=== PATIENT | male | born 1970 | race African-American/Black ===

== ENCOUNTER 2020-08-31 10:12 | Inpatient (IN) | payer OTHER ==
[2020-08-31 11:16] VITALS: BMI 35.3
[2020-08-31] MEDS ORDERED: MAG HYDROX/AL HYDROX/SIMETH 30 ML UNIT-DOSE CUP PO PRN (13:31)
[2020-08-31] MEDS ORDERED: METHOCARBAMOL 500 MG TABLET PO PRN (13:31)
[2020-08-31] MEDS ORDERED: MAGNESIUM HYDROX 2400MG/30ML ORAL SUSPENSION 30 ML CUP PO PRN (13:31)
[2020-08-31] MEDS ORDERED: NICOTINE POLACRILEX 2 MG GUM BUC PRN (13:31)
[2020-08-31] MEDS ORDERED: ACETAMINOPHEN 325 MG TABLET (FP) PO PRN ×2 (13:31)
[2020-08-31] MEDS ORDERED: BISMUTH SUBSALICYLATE 524 MG/30 ML UD PO PRN (13:31)
[2020-08-31] MEDS ORDERED: MAGNESIUM CITRATE 300 ML BOTTLE PO PRN (13:31)
[2020-08-31] MEDS ORDERED: MENTHOL/PHENOL 1 EACH UD MM PRN (13:31)
[2020-08-31] MEDS ORDERED: IBUPROFEN 400 MG TABLET (FP) PO PRN (13:31)
[2020-08-31] MEDS ORDERED: ONDANSETRON *ODT* 4 MG TABLET SL PRN (13:31)
[2020-08-31] MEDS ORDERED: cloNIDine HCL 0.1 MG TABLET PO PRN (13:31)
[2020-08-31] MEDS ORDERED: METHADONE HCL 10 MG TABLET (FOR DETOX USE ONLY) PO ONE (13:45)
[2020-08-31] MEDS: hydrOXYzine PAMOATE 25 MG CAPSULE (FP) PO SCH ×3 (15:05→23:42)
[2020-08-31] MEDS: NICOTINE 14 MG/24 HOURS TOPICAL PATCH TD SCH (15:05)
[2020-08-31 17:29] LABS: POTASSIUM 3.6 mmol/L (3.5-5.1)
[2020-08-31 17:31] LABS: CALCIUM 8.6 mg/dL (8.5-10.1); HEMATOCRIT 36.3 % (35.4-49); HEMOGLOBIN 12.3 GM/dL (11.7-16.9); MCH 30.4 pg (25.7-33.7); MCHC 33.9 g/dl (32.0-35.9); MEAN CELL VOLUME 89.6 fl (80-96); PLATELET COUNT 124 K/MM3 (134-434); RBC 4.05 M/mm3 (4.00-5.60); RDW 14.2 % (11.9-15.9); WHITE BLOOD COUNT 4.3 K/mm3 (4.0-10.0)
[2020-08-31 17:32] LABS: ALBUMIN 3.5 g/dl (3.4-5.0); BLOOD UREA NITROGEN 7.6 mg/dL (7-18)
[2020-08-31 17:35] LABS: CREATININE 1.1 mg/dL (0.55-1.3)
[2020-08-31 17:37] LABS: BILIRUBIN,TOTAL 0.8 mg/dL (0.2-1)
[2020-08-31] MEDS: MELATONIN 5 MG TABLETS PO SCH (23:42)
[2020-08-31] MEDS: THIAMINE HCL 100 MG TABLET (FP) PO SCH (23:42)
[2020-09-01] MEDS: hydrOXYzine PAMOATE 25 MG CAPSULE (FP) PO SCH ×5 (05:42→22:58)
[2020-09-01] MEDS ORDERED: METHADONE HCL 10 MG TABLET (FOR DETOX USE ONLY) ONE (09:17)
[2020-09-01] MEDS ORDERED: METHADONE HCL 5 MG TABLET (FOR DETOX USE ONLY) ONE (09:17)
[2020-09-01] MEDS ORDERED: METHADONE (DETOX) 20 MG, METHADONE (DETOX) 5 MG PO ONE (10:00)
[2020-09-01] MEDS: PRENATAL VITAMINS W/ FOLIC ACID TABLET (FP) PO SCH (10:29)
[2020-09-01] MEDS: NICOTINE 14 MG/24 HOURS TOPICAL PATCH TD SCH (10:30)
[2020-09-01] MEDS: MELATONIN 5 MG TABLETS PO SCH (22:58)
[2020-09-01] MEDS: THIAMINE HCL 100 MG TABLET (FP) PO SCH (22:58)
[2020-09-02] MEDS: hydrOXYzine PAMOATE 25 MG CAPSULE (FP) PO SCH ×5 (07:26→22:25)
[2020-09-02] MEDS ORDERED: METHADONE HCL 10 MG TABLET (FOR DETOX USE ONLY) PO ONE (10:00)
[2020-09-02] MEDS: PRENATAL VITAMINS W/ FOLIC ACID TABLET (FP) PO SCH (10:40)
[2020-09-02] MEDS: NICOTINE 14 MG/24 HOURS TOPICAL PATCH TD SCH (10:40)
[2020-09-02] MEDS: CLOTRIMAZOLE 10 MG TROCHE PO SCH ×3 (14:07→22:26)
[2020-09-02] MEDS: THIAMINE HCL 100 MG TABLET (FP) PO SCH (22:25)
[2020-09-02] MEDS: MELATONIN 5 MG TABLETS PO SCH (22:26)
[2020-09-03] MEDS: CLOTRIMAZOLE 10 MG TROCHE PO SCH ×5 (05:59→22:35)
[2020-09-03] MEDS: hydrOXYzine PAMOATE 25 MG CAPSULE (FP) PO SCH ×5 (05:59→22:35)
[2020-09-03] MEDS ORDERED: METHADONE HCL 10 MG TABLET (FOR DETOX USE ONLY) ONE (09:22)
[2020-09-03] MEDS ORDERED: METHADONE HCL 5 MG TABLET (FOR DETOX USE ONLY) ONE (09:22)
[2020-09-03] MEDS ORDERED: METHADONE (DETOX) 10 MG, METHADONE (DETOX) 5 MG PO ONE (10:00)
[2020-09-03] MEDS: PRENATAL VITAMINS W/ FOLIC ACID TABLET (FP) PO SCH (10:34)
[2020-09-03] MEDS: NICOTINE 14 MG/24 HOURS TOPICAL PATCH TD SCH (10:35)
[2020-09-03] MEDS: THIAMINE HCL 100 MG TABLET (FP) PO SCH (22:35)
[2020-09-03] MEDS: MELATONIN 5 MG TABLETS PO SCH (22:35)
[2020-09-04] MEDS: CLOTRIMAZOLE 10 MG TROCHE PO SCH ×3 (06:30→13:34)
[2020-09-04] MEDS: hydrOXYzine PAMOATE 25 MG CAPSULE (FP) PO SCH ×3 (06:30→13:35)
[2020-09-04] MEDS ORDERED: METHADONE HCL 10 MG TABLET (FOR DETOX USE ONLY) PO ONE (10:00)
[2020-09-04] MEDS: PRENATAL VITAMINS W/ FOLIC ACID TABLET (FP) PO SCH (10:54)
[2020-09-04] MEDS: NICOTINE 14 MG/24 HOURS TOPICAL PATCH TD SCH (10:54)
[2020-09-04 14:08] VITALS: BP 148/94; PULSE 91; TEMP 97.3
[2020-09-05] MEDS ORDERED: METHADONE HCL 5 MG TABLET (FOR DETOX USE ONLY) PO ONE (06:00)
== END 2020-09-04 05:39 | disposition home or self-care (01) | DRG 773 ==
LOC: YASAS 10:12 → Y6N 13:43
PROVIDERS: ADMIT Allergy & Immunology; ATTEND Allergy & Immunology
PROC: HZ2ZZZZ Detoxification Services for Substance Abuse Treatment (ICD-10-PCS; principal; 2020-08-31)
DX: F11.23 Opioid dependence with withdrawal (principal); F14.20 Cocaine dependence, uncomplicated; F17.210 Nicotine dependence, cigarettes, uncomplicated; Z21 Asymptomatic human immunodeficiency virus [HIV] infection status; B37.0 Candidal stomatitis; D69.6 Thrombocytopenia, unspecified; R74.8 Abnormal levels of other serum enzymes; E66.9 Obesity, unspecified; Z68.35 Body mass index [BMI] 35.0-35.9, adult
CPT/HCPCS: 36415; 80053; 85027; 86780; 93005; 93010; C9803; U0003

== ENCOUNTER 2020-12-01 12:26 | Inpatient (IN) | payer OTHER ==
[2020-12-01 13:21] VITALS: BMI 33.1
[2020-12-01] MEDS ORDERED: MAG HYDROX/AL HYDROX/SIMETH 30 ML UNIT-DOSE CUP PO PRN (16:28)
[2020-12-01] MEDS ORDERED: MENTHOL/PHENOL 1 EACH UD MM PRN (16:28)
[2020-12-01] MEDS ORDERED: METHADONE HCL 10 MG TABLET (FOR DETOX USE ONLY) PO ONE (16:28)
[2020-12-01] MEDS ORDERED: MAGNESIUM CITRATE 300 ML BOTTLE PO PRN (16:28)
[2020-12-01] MEDS ORDERED: ACETAMINOPHEN 325 MG TABLET (FP) PO PRN ×2 (16:28)
[2020-12-01] MEDS ORDERED: NICOTINE POLACRILEX 2 MG GUM BUC PRN (16:28)
[2020-12-01] MEDS ORDERED: ONDANSETRON *ODT* 4 MG TABLET SL PRN (16:28)
[2020-12-01] MEDS ORDERED: IBUPROFEN 400 MG TABLET (FP) PO PRN (16:28)
[2020-12-01] MEDS ORDERED: BISMUTH SUBSALICYLATE 524 MG/30 ML PO PRN (16:28)
[2020-12-01] MEDS ORDERED: MAGNESIUM HYDROX 2400MG/30ML ORAL SUSPENSION 30 ML CUP PO PRN (16:28)
[2020-12-01] MEDS ORDERED: cloNIDine HCL 0.1 MG TABLET PO PRN (16:28)
[2020-12-01] MEDS ORDERED: METHOCARBAMOL 500 MG TABLET PO PRN (16:28)
[2020-12-01] MEDS: hydrOXYzine PAMOATE 25 MG CAPSULE (FP) PO SCH ×2 (17:53→22:25)
[2020-12-01] MEDS: MELATONIN 5 MG TABLETS PO SCH (22:25)
[2020-12-01] MEDS: THIAMINE HCL 100 MG TABLET (FP) PO SCH (22:25)
[2020-12-02] MEDS: hydrOXYzine PAMOATE 25 MG CAPSULE (FP) PO SCH ×2 (06:45→10:38)
[2020-12-02] MEDS ORDERED: METHADONE HCL 5 MG TABLET (FOR DETOX USE ONLY) ONE (08:57)
[2020-12-02] MEDS ORDERED: METHADONE HCL 10 MG TABLET (FOR DETOX USE ONLY) ONE (08:57)
[2020-12-02] MEDS ORDERED: METHADONE (DETOX) 20 MG, METHADONE (DETOX) 5 MG PO ONE (10:00)
[2020-12-02] MEDS ORDERED: HYDROCORTISONE 0.5% TOPICAL OINTMENT TUBE TP PRN (10:00)
[2020-12-02 10:02] LABS: HEMATOCRIT 35.3 % (35.4-49); HEMOGLOBIN 11.9 GM/dL (11.7-16.9); MCH 29.9 pg (25.7-33.7); MCHC 33.8 g/dl (32.0-35.9); MEAN CELL VOLUME 88.5 fl (80-96); MEAN PLT VOLUME 10.3 fl (7.5-11.1); PLATELET COUNT 109 K/MM3 (134-434); RBC 3.99 M/mm3 (4.00-5.60); RDW 15.1 % (11.9-15.9); WHITE BLOOD COUNT 2.8 K/mm3 (4.0-10.0)
[2020-12-02 10:04] LABS: CALCIUM 8.7 mg/dL (8.5-10.1)
[2020-12-02 10:05] LABS: ALBUMIN 3.8 g/dl (3.4-5.0); BLOOD UREA NITROGEN 6.8 mg/dL (7-18)
[2020-12-02 10:08] LABS: CREATININE 1.2 mg/dL (0.55-1.3)
[2020-12-02 10:09] LABS: BILIRUBIN,TOTAL 0.5 mg/dL (0.2-1); TOT PROT 8.6 g/dl (6.4-8.2)
[2020-12-02] MEDS ORDERED: hydrOXYzine PAMOATE 25 MG CAPSULE (FP) PO PRN (10:19)
[2020-12-02] MEDS: SULFAMETHOXAZOLE/TRIMETHOPRIM 800MG/160MG D.S. TABLET PO SCH (10:37)
[2020-12-02] MEDS: PRENATAL VITAMINS W/ FOLIC ACID TABLET (FP) PO SCH (10:37)
[2020-12-02] MEDS: FLUCONAZOLE 100 MG TABLET (UD) PO SCH (11:55)
[2020-12-02] MEDS: THIAMINE HCL 100 MG TABLET (FP) PO SCH (23:16)
[2020-12-02] MEDS: MELATONIN 5 MG TABLETS PO SCH (23:16)
[2020-12-03] MEDS ORDERED: METHADONE HCL 10 MG TABLET (FOR DETOX USE ONLY) PO ONE (10:00)
[2020-12-03] MEDS: SULFAMETHOXAZOLE/TRIMETHOPRIM 800MG/160MG D.S. TABLET PO SCH (10:09)
[2020-12-03] MEDS: PRENATAL VITAMINS W/ FOLIC ACID TABLET (FP) PO SCH (10:09)
[2020-12-03] MEDS: FLUCONAZOLE 100 MG TABLET (UD) PO SCH (10:09)
[2020-12-03] MEDS: THIAMINE HCL 100 MG TABLET (FP) PO SCH (22:47)
[2020-12-03] MEDS: MELATONIN 5 MG TABLETS PO SCH (22:47)
[2020-12-04] MEDS ORDERED: METHADONE HCL 5 MG TABLET (FOR DETOX USE ONLY) ONE (09:01)
[2020-12-04] MEDS ORDERED: METHADONE HCL 10 MG TABLET (FOR DETOX USE ONLY) ONE (09:01)
[2020-12-04] MEDS ORDERED: METHADONE (DETOX) 10 MG, METHADONE (DETOX) 5 MG PO ONE (10:00)
[2020-12-04 10:07] LABS: SARS-CoV-2 NAA Not Detected (Not Detected)
[2020-12-04] MEDS: PRENATAL VITAMINS W/ FOLIC ACID TABLET (FP) PO SCH (10:51)
[2020-12-04] MEDS: SULFAMETHOXAZOLE/TRIMETHOPRIM 800MG/160MG D.S. TABLET PO SCH (10:51)
[2020-12-04] MEDS: FLUCONAZOLE 100 MG TABLET (UD) PO SCH (10:51)
[2020-12-04] MEDS: THIAMINE HCL 100 MG TABLET (FP) PO SCH (22:33)
[2020-12-04] MEDS: MELATONIN 5 MG TABLETS PO SCH (22:33)
[2020-12-05 06:05] VITALS: BP 118/83; PULSE 77; TEMP 96.9
[2020-12-05] MEDS ORDERED: METHADONE HCL 10 MG TABLET (FOR DETOX USE ONLY) PO ONE (10:00)
[2020-12-05] MEDS: FLUCONAZOLE 100 MG TABLET (UD) PO SCH (10:22)
[2020-12-05] MEDS: PRENATAL VITAMINS W/ FOLIC ACID TABLET (FP) PO SCH (10:22)
[2020-12-05] MEDS: SULFAMETHOXAZOLE/TRIMETHOPRIM 800MG/160MG D.S. TABLET PO SCH (10:22)
[2020-12-06] MEDS ORDERED: METHADONE HCL 5 MG TABLET (FOR DETOX USE ONLY) PO ONE (06:00)
== END 2020-12-05 11:03 | disposition left against medical advice (07) | DRG 770 ==
LOC: YASAS 12:26 → Y3N 15:49
PROVIDERS: ADMIT Allergy & Immunology; ATTEND Allergy & Immunology
PROC: HZ2ZZZZ Detoxification Services for Substance Abuse Treatment (ICD-10-PCS; principal; 2020-12-01)
DX: F11.23 Opioid dependence with withdrawal (principal); F14.20 Cocaine dependence, uncomplicated; F17.210 Nicotine dependence, cigarettes, uncomplicated; Z21 Asymptomatic human immunodeficiency virus [HIV] infection status; B37.0 Candidal stomatitis
CPT/HCPCS: 36415; 80053; 85027; 86780; 93005; 93010; C9803; U0003; U0005

== ENCOUNTER 2021-01-31 09:55 | Inpatient (IN) | payer OTHER ==
[2021-01-31 10:31] VITALS: BMI 32.5
[2021-01-31] MEDS ORDERED: MAGNESIUM CITRATE 300 ML BOTTLE PO PRN (10:57)
[2021-01-31] MEDS ORDERED: cloNIDine HCL 0.1 MG TABLET PO PRN (10:57)
[2021-01-31] MEDS ORDERED: MAGNESIUM HYDROX 2400MG/30ML ORAL SUSPENSION 30 ML CUP PO PRN (10:57)
[2021-01-31] MEDS ORDERED: ACETAMINOPHEN 325 MG TABLET (FP) PO PRN ×2 (10:57)
[2021-01-31] MEDS ORDERED: MAG HYDROX/AL HYDROX/SIMETH 30 ML UNIT-DOSE CUP PO PRN (10:57)
[2021-01-31] MEDS ORDERED: ONDANSETRON *ODT* 4 MG TABLET SL PRN (10:57)
[2021-01-31] MEDS ORDERED: BISMUTH SUBSALICYLATE 262 MG/15 ML BTL PO PRN (10:57)
[2021-01-31] MEDS ORDERED: NICOTINE POLACRILEX 2 MG GUM BUC PRN (10:57)
[2021-01-31] MEDS ORDERED: MENTHOL/PHENOL 1 EACH UD MM PRN (10:57)
[2021-01-31] MEDS ORDERED: IBUPROFEN 400 MG TABLET (FP) PO PRN (10:57)
[2021-01-31] MEDS ORDERED: methaDONE HCL 10 MG TABLET (FOR DETOX USE ONLY) PO ONE (10:57)
[2021-01-31 12:12] LABS: HEMATOCRIT 35.4 % (35.4-49); HEMOGLOBIN 11.9 GM/dL (11.7-16.9); MCH 30.5 pg (25.7-33.7); MCHC 33.6 g/dl (32.0-35.9); MEAN CELL VOLUME 90.7 fl (80-96); PLATELET COUNT 72 10^3/uL (134-434); RDW 15.4 % (11.9-15.9)
[2021-01-31 12:19] LABS: ALBUMIN 3.3 g/dl (3.4-5.0); BLOOD UREA NITROGEN 9.4 mg/dL (7-18); CALCIUM 8.1 mg/dL (8.5-10.1)
[2021-01-31 12:22] LABS: CREATININE 1.1 mg/dL (0.55-1.3)
[2021-01-31 12:24] LABS: BILIRUBIN,TOTAL 0.5 mg/dL (0.2-1); TOT PROT 8.1 g/dl (6.4-8.2)
[2021-01-31] MEDS: SULFAMETHOXAZOLE/TRIMETHOPRIM 800MG/160MG D.S. TABLET PO SCH (12:34)
[2021-01-31] MEDS: NICOTINE 21 MG/24 HOURS TOPICAL PATCH TD SCH (12:37)
[2021-01-31] MEDS: PRENATAL VITAMINS W/ FOLIC ACID TABLET (FP) PO SCH (12:38)
[2021-01-31] MEDS: hydrOXYzine PAMOATE 25 MG CAPSULE (FP) PO SCH ×3 (13:31→23:20)
[2021-01-31] MEDS: THIAMINE HCL 100 MG TABLET (FP) PO SCH (23:20)
[2021-01-31] MEDS: MELATONIN 5 MG TABLETS PO SCH (23:20)
[2021-02-01] MEDS: hydrOXYzine PAMOATE 25 MG CAPSULE (FP) PO SCH (05:18)
[2021-02-01] MEDS ORDERED: hydrOXYzine PAMOATE 25 MG CAPSULE (FP) PO PRN (08:15)
[2021-02-01] MEDS ORDERED: methaDONE HCL 10 MG TABLET (FOR DETOX USE ONLY) ONE (09:00)
[2021-02-01] MEDS: METHOCARBAMOL 500 MG TABLET PO PRN (10:06)
[2021-02-01] MEDS: PRENATAL VITAMINS W/ FOLIC ACID TABLET (FP) PO SCH (10:06)
[2021-02-01] MEDS: SULFAMETHOXAZOLE/TRIMETHOPRIM 800MG/160MG D.S. TABLET PO SCH (10:06)
[2021-02-01] MEDS: POTASSIUM CHLORIDE ORAL LIQUID 20 MEQ/15 ML PO SCH ×2 (11:23→22:21)
[2021-02-01] MEDS: NICOTINE 21 MG/24 HOURS TOPICAL PATCH TD SCH (11:25)
[2021-02-01] MEDS: CLOTRIMAZOLE 10 MG TROCHE PO SCH ×3 (15:27→22:24)
[2021-02-01] MEDS: THIAMINE HCL 100 MG TABLET (FP) PO SCH (22:21)
[2021-02-01] MEDS: MELATONIN 5 MG TABLETS PO SCH (22:24)
[2021-02-02] MEDS: CLOTRIMAZOLE 10 MG TROCHE PO SCH ×5 (06:23→22:06)
[2021-02-02] MEDS ORDERED: methaDONE HCL 10 MG TABLET (FOR DETOX USE ONLY) PO ONE (10:00)
[2021-02-02 10:08] LABS: HEMATOCRIT 34.1 % (35.4-49); HEMOGLOBIN 11.6 GM/dL (11.7-16.9); MCH 30.1 pg (25.7-33.7); MCHC 33.9 g/dl (32.0-35.9); MEAN PLT VOLUME 10.5 fl (7.5-11.1); PLATELET COUNT 70 10^3/uL (134-434); RBC 3.83 M/mm3 (4.00-5.60); RDW 14.9 % (11.9-15.9)
[2021-02-02] MEDS ORDERED: COVID-19 VAC,AD26(JANSSEN)/PF 0.5 ML IM ONE (10:15)
[2021-02-02] MEDS: SULFAMETHOXAZOLE/TRIMETHOPRIM 800MG/160MG D.S. TABLET PO SCH (10:16)
[2021-02-02] MEDS: NICOTINE 21 MG/24 HOURS TOPICAL PATCH TD SCH (10:16)
[2021-02-02] MEDS: PRENATAL VITAMINS W/ FOLIC ACID TABLET (FP) PO SCH (10:16)
[2021-02-02] MEDS: POTASSIUM CHLORIDE ORAL LIQUID 20 MEQ/15 ML PO SCH ×2 (10:16→22:46)
[2021-02-02] MEDS: METHOCARBAMOL 500 MG TABLET PO PRN (10:19)
[2021-02-02 10:22] LABS: WHITE BLOOD COUNT 1.8 K/mm3 (4.0-10.0)
[2021-02-02] MEDS: MELATONIN 5 MG TABLETS PO SCH (22:06)
[2021-02-02] MEDS: THIAMINE HCL 100 MG TABLET (FP) PO SCH (22:06)
[2021-02-03] MEDS: CLOTRIMAZOLE 10 MG TROCHE PO SCH ×3 (06:35→14:45)
[2021-02-03] MEDS ORDERED: methaDONE HCL 10 MG TABLET (FOR DETOX USE ONLY) ONE (08:44)
[2021-02-03] MEDS: PRENATAL VITAMINS W/ FOLIC ACID TABLET (FP) PO SCH (10:15)
[2021-02-03] MEDS: SULFAMETHOXAZOLE/TRIMETHOPRIM 800MG/160MG D.S. TABLET PO SCH (10:15)
[2021-02-03] MEDS: NICOTINE 21 MG/24 HOURS TOPICAL PATCH TD SCH (10:18)
[2021-02-03 17:15] VITALS: BP 120/85; PULSE 108; TEMP 96.9
[2021-02-04] MEDS ORDERED: methaDONE HCL 10 MG TABLET (FOR DETOX USE ONLY) PO ONE (10:00)
== END 2021-02-03 17:40 | disposition home or self-care (01) | DRG 773 ==
LOC: YASAS 09:55 → Y3N 10:50
PROVIDERS: ADMIT Allergy & Immunology; ATTEND Allergy & Immunology
PROC: HZ2ZZZZ Detoxification Services for Substance Abuse Treatment (ICD-10-PCS; principal; 2021-01-30)
DX: F11.23 Opioid dependence with withdrawal (principal); F14.20 Cocaine dependence, uncomplicated; F17.210 Nicotine dependence, cigarettes, uncomplicated; B20 Human immunodeficiency virus [HIV] disease; B37.0 Candidal stomatitis; E87.6 Hypokalemia; D69.6 Thrombocytopenia, unspecified; D72.819 Decreased white blood cell count, unspecified; E66.9 Obesity, unspecified; Z68.32 Body mass index [BMI] 32.0-32.9, adult; Z59.0 Homelessness
CPT/HCPCS: 0031A; 36415; 80053; 84132; 85027; 86780; 91303; C9803; J0735; U0003; U0005

== ENCOUNTER 2021-04-04 13:59 | Inpatient (IN) | payer OTHER ==
[2021-04-04 15:41] VITALS: BMI 32.1
[2021-04-04] MEDS ORDERED: ONDANSETRON *ODT* 4 MG TABLET SL PRN (18:07)
[2021-04-04] MEDS ORDERED: ACETAMINOPHEN 325 MG TABLET (FP) PO PRN ×2 (18:07)
[2021-04-04] MEDS ORDERED: BISMUTH SUBSALICYLATE 524 MG/30 ML PO PRN (18:07)
[2021-04-04] MEDS ORDERED: MAG HYDROX/AL HYDROX/SIMETH 30 ML UNIT-DOSE CUP PO PRN (18:07)
[2021-04-04] MEDS ORDERED: IBUPROFEN 400 MG TABLET (FP) PO PRN (18:07)
[2021-04-04] MEDS ORDERED: METHOCARBAMOL 500 MG TABLET PO PRN (18:07)
[2021-04-04] MEDS ORDERED: MAGNESIUM HYDROX 2400MG/30ML ORAL SUSPENSION 30 ML CUP PO PRN (18:07)
[2021-04-04] MEDS ORDERED: MENTHOL/PHENOL 1 EACH UD MM PRN (18:07)
[2021-04-04] MEDS ORDERED: NICOTINE 10 MG CARTRIDGE (INHALER) IH PRN (18:07)
[2021-04-04] MEDS ORDERED: NICOTINE 21 MG/24 HOURS TOPICAL PATCH TD PRN (18:07)
[2021-04-04] MEDS ORDERED: MAGNESIUM CITRATE 300 ML BOTTLE PO PRN (18:07)
[2021-04-04] MEDS: BICTEGRAV/EMTRICIT/TENOFOV (BIKTARVY) 50-200-25 MG TABLET PO SCH (19:07)
[2021-04-04] MEDS: SULFAMETHOXAZOLE/TRIMETHOPRIM 800MG/160MG D.S. TABLET PO SCH (19:07)
[2021-04-04] MEDS ORDERED: cloNIDine HCL 0.1 MG TABLET PO PRN (19:18)
[2021-04-04] MEDS ORDERED: clonazePAM 0.5 MG ODT TABLETS SL PRN (19:18)
[2021-04-04] MEDS ORDERED: methaDONE HCL 10 MG TABLET (FOR DETOX USE ONLY) PO ONE (20:00)
[2021-04-04] MEDS: THIAMINE HCL 100 MG TABLET (FP) PO SCH (22:34)
[2021-04-04] MEDS: MELATONIN 5 MG TABLETS PO SCH (22:34)
[2021-04-04] MEDS: hydrOXYzine PAMOATE 25 MG CAPSULE (FP) PO SCH (22:35)
[2021-04-05] MEDS: hydrOXYzine PAMOATE 25 MG CAPSULE (FP) PO SCH ×5 (05:20→22:32)
[2021-04-05] MEDS ORDERED: methaDONE HCL 10 MG TABLET (FOR DETOX USE ONLY) ONE (08:36)
[2021-04-05] MEDS ORDERED: cloNIDine HCL 0.1 MG TABLET PO PRN (10:20)
[2021-04-05] MEDS ORDERED: clonazePAM 0.5 MG ODT TABLETS SL PRN (10:20)
[2021-04-05] MEDS: BICTEGRAV/EMTRICIT/TENOFOV (BIKTARVY) 50-200-25 MG TABLET PO SCH (10:37)
[2021-04-05] MEDS: SULFAMETHOXAZOLE/TRIMETHOPRIM 800MG/160MG D.S. TABLET PO SCH (10:40)
[2021-04-05] MEDS ORDERED: methaDONE HCL 10 MG TABLET (FOR DETOX USE ONLY) PO ONE (10:45)
[2021-04-05 11:42] LABS: HEMATOCRIT 31.3 % (35.4-49); HEMOGLOBIN 10.7 GM/dL (11.7-16.9); MCH 30.9 pg (25.7-33.7); MCHC 34.2 g/dl (32.0-35.9); MEAN CELL VOLUME 90.4 fl (80-96); MEAN PLT VOLUME 9.4 fl (7.5-11.1); PLATELET COUNT 98 10^3/uL (134-434); RBC 3.46 M/mm3 (4.00-5.60); RDW 16.2 % (11.9-15.9); WHITE BLOOD COUNT 3.4 K/mm3 (4.0-10.0)
[2021-04-05 12:08] LABS: ALBUMIN 2.7 g/dl (3.4-5.0); BLOOD UREA NITROGEN 6.4 mg/dL (7-18)
[2021-04-05 12:09] LABS: CALCIUM 8.5 mg/dL (8.5-10.1)
[2021-04-05 12:13] LABS: TOT PROT 7.2 g/dl (6.4-8.2)
[2021-04-05 12:14] LABS: BILIRUBIN,TOTAL 0.3 mg/dL (0.2-1)
[2021-04-05] MEDS: MELATONIN 5 MG TABLETS PO SCH (22:31)
[2021-04-05] MEDS: THIAMINE HCL 100 MG TABLET (FP) PO SCH (22:32)
[2021-04-06] MEDS: hydrOXYzine PAMOATE 25 MG CAPSULE (FP) PO SCH ×5 (07:31→22:48)
[2021-04-06] MEDS: BICTEGRAV/EMTRICIT/TENOFOV (BIKTARVY) 50-200-25 MG TABLET PO SCH (08:51)
[2021-04-06] MEDS ORDERED: methaDONE HCL 10 MG TABLET (FOR DETOX USE ONLY) PO ONE ×2 (10:00)
[2021-04-06] MEDS: SULFAMETHOXAZOLE/TRIMETHOPRIM 800MG/160MG D.S. TABLET PO SCH (10:10)
[2021-04-06] MEDS: MELATONIN 5 MG TABLETS PO SCH (22:47)
[2021-04-06] MEDS: THIAMINE HCL 100 MG TABLET (FP) PO SCH (22:48)
[2021-04-07] MEDS: hydrOXYzine PAMOATE 25 MG CAPSULE (FP) PO SCH ×5 (05:23→22:33)
[2021-04-07] MEDS: BICTEGRAV/EMTRICIT/TENOFOV (BIKTARVY) 50-200-25 MG TABLET PO SCH (07:27)
[2021-04-07] MEDS ORDERED: methaDONE HCL 10 MG TABLET (FOR DETOX USE ONLY) ONE (09:34)
[2021-04-07] MEDS ORDERED: methaDONE HCL 10 MG TABLET (FOR DETOX USE ONLY) PO ONE (10:00)
[2021-04-07] MEDS: SULFAMETHOXAZOLE/TRIMETHOPRIM 800MG/160MG D.S. TABLET PO SCH (10:23)
[2021-04-07] MEDS: MELATONIN 5 MG TABLETS PO SCH (22:33)
[2021-04-07] MEDS: THIAMINE HCL 100 MG TABLET (FP) PO SCH (22:33)
[2021-04-08] MEDS: hydrOXYzine PAMOATE 25 MG CAPSULE (FP) PO SCH (05:24)
[2021-04-08 06:51] VITALS: BP 140/84; PULSE 94; TEMP 96.1
[2021-04-08] MEDS ORDERED: methaDONE HCL 10 MG TABLET (FOR DETOX USE ONLY) PO ONE ×2 (10:00)
== END 2021-04-08 09:00 | disposition home or self-care (01) | DRG 773 ==
LOC: YASAS 13:59 → Y3N 17:57 → UNDOADMIN 17:57 → Y3N 18:15
PROVIDERS: ADMIT Allergy & Immunology; ATTEND Allergy & Immunology
PROC: HZ2ZZZZ Detoxification Services for Substance Abuse Treatment (ICD-10-PCS; principal; 2021-04-04)
DX: F11.23 Opioid dependence with withdrawal (principal); F14.20 Cocaine dependence, uncomplicated; F17.210 Nicotine dependence, cigarettes, uncomplicated; Z21 Asymptomatic human immunodeficiency virus [HIV] infection status; B37.0 Candidal stomatitis; E66.9 Obesity, unspecified; Z68.32 Body mass index [BMI] 32.0-32.9, adult; Z86.19 Personal history of other infectious and parasitic diseases; Z59.00 Homelessness unspecified
CPT/HCPCS: 36415; 80053; 85027; 86780; C9803; J0735; Q0162; U0003; U0005

== ENCOUNTER 2021-04-27 09:42 | Inpatient (IN) | payer OTHER ==
[2021-04-27 10:53] VITALS: BMI 32.1
[2021-04-27] MEDS ORDERED: BISMUTH SUBSALICYLATE 524 MG/30 ML PO PRN (11:49)
[2021-04-27] MEDS ORDERED: methaDONE HCL 10 MG TABLET (FOR DETOX USE ONLY) PO ONE (11:49)
[2021-04-27] MEDS ORDERED: METHOCARBAMOL 500 MG TABLET PO PRN (11:49)
[2021-04-27] MEDS ORDERED: ONDANSETRON *ODT* 4 MG TABLET SL PRN (11:49)
[2021-04-27] MEDS ORDERED: MAG HYDROX/AL HYDROX/SIMETH 30 ML UNIT-DOSE CUP PO PRN (11:49)
[2021-04-27] MEDS ORDERED: IBUPROFEN 400 MG TABLET (FP) PO PRN (11:49)
[2021-04-27] MEDS ORDERED: MAGNESIUM HYDROX 2400MG/30ML ORAL SUSPENSION 30 ML CUP PO PRN (11:49)
[2021-04-27] MEDS ORDERED: ACETAMINOPHEN 325 MG TABLET (FP) PO PRN ×2 (11:49)
[2021-04-27] MEDS ORDERED: MAGNESIUM CITRATE 300 ML BOTTLE PO PRN (11:49)
[2021-04-27] MEDS ORDERED: NICOTINE POLACRILEX 4 MG GUM BUC PRN (11:49)
[2021-04-27] MEDS ORDERED: cloNIDine HCL 0.1 MG TABLET PO PRN (11:49)
[2021-04-27] MEDS ORDERED: MENTHOL/PHENOL 1 EACH UD MM PRN (11:49)
[2021-04-27] MEDS: PRENATAL VITAMINS W/ FOLIC ACID TABLET (FP) PO SCH (13:05)
[2021-04-27] MEDS: hydrOXYzine PAMOATE 25 MG CAPSULE (FP) PO SCH ×3 (13:05→22:51)
[2021-04-27 14:42] LABS: HEMATOCRIT 37.3 % (35.4-49); HEMOGLOBIN 12.8 GM/dL (11.7-16.9); MCH 31.6 pg (25.7-33.7); MCHC 34.2 g/dl (32.0-35.9); MEAN CELL VOLUME 92.5 fl (80-96); MEAN PLT VOLUME 9.1 fl (7.5-11.1); PLATELET COUNT 133 10^3/uL (134-434); RBC 4.04 M/mm3 (4.00-5.60); RDW 16.5 % (11.9-15.9); WHITE BLOOD COUNT 3.1 K/mm3 (4.0-10.0)
[2021-04-27 14:51] LABS: CALCIUM 8.9 mg/dL (8.5-10.1)
[2021-04-27 14:52] LABS: ALBUMIN 3.1 g/dl (3.4-5.0); BLOOD UREA NITROGEN 8.7 mg/dL (7-18)
[2021-04-27 14:56] LABS: BILIRUBIN,TOTAL 0.4 mg/dL (0.2-1); TOT PROT 8.4 g/dl (6.4-8.2)
[2021-04-27] MEDS: MELATONIN 5 MG TABLETS PO SCH (22:51)
[2021-04-27] MEDS: TOLNAFTATE 1% CREAM 15 GM TUBE TP SCH (22:51)
[2021-04-27] MEDS: THIAMINE HCL 100 MG TABLET (FP) PO SCH (22:52)
[2021-04-28] MEDS ORDERED: ONDANSETRON *ODT* 4 MG TABLET SL PRN (05:12)
[2021-04-28] MEDS: hydrOXYzine PAMOATE 25 MG CAPSULE (FP) PO SCH ×5 (05:16→23:09)
[2021-04-28] MEDS ORDERED: methaDONE HCL 10 MG TABLET (FOR DETOX USE ONLY) ONE (09:16)
[2021-04-28] MEDS: PRENATAL VITAMINS W/ FOLIC ACID TABLET (FP) PO SCH (10:46)
[2021-04-28] MEDS: TOLNAFTATE 1% CREAM 15 GM TUBE TP SCH ×2 (10:47→23:09)
[2021-04-28] MEDS: SULFAMETHOXAZOLE/TRIMETHOPRIM 800MG/160MG D.S. TABLET PO SCH (10:47)
[2021-04-28] MEDS: BICTEGRAV/EMTRICIT/TENOFOV (BIKTARVY) 50-200-25 MG TABLET PO SCH (10:49)
[2021-04-28] MEDS ORDERED: diazePAM 5 MG TABLET PO PRN (11:44)
[2021-04-28] MEDS: MELATONIN 5 MG TABLETS PO SCH (23:09)
[2021-04-28] MEDS: THIAMINE HCL 100 MG TABLET (FP) PO SCH (23:09)
[2021-04-29] MEDS: hydrOXYzine PAMOATE 25 MG CAPSULE (FP) PO SCH ×5 (05:19→21:37)
[2021-04-29] MEDS: BICTEGRAV/EMTRICIT/TENOFOV (BIKTARVY) 50-200-25 MG TABLET PO SCH (07:48)
[2021-04-29] MEDS ORDERED: methaDONE HCL 10 MG TABLET (FOR DETOX USE ONLY) PO ONE (10:00)
[2021-04-29] MEDS: PRENATAL VITAMINS W/ FOLIC ACID TABLET (FP) PO SCH (10:19)
[2021-04-29] MEDS: TOLNAFTATE 1% CREAM 15 GM TUBE TP SCH ×2 (10:19→21:37)
[2021-04-29] MEDS: SULFAMETHOXAZOLE/TRIMETHOPRIM 800MG/160MG D.S. TABLET PO SCH (10:19)
[2021-04-29] MEDS: THIAMINE HCL 100 MG TABLET (FP) PO SCH (21:37)
[2021-04-29] MEDS: MELATONIN 5 MG TABLETS PO SCH (22:30)
[2021-04-30] MEDS: hydrOXYzine PAMOATE 25 MG CAPSULE (FP) PO SCH ×2 (05:47→10:06)
[2021-04-30 09:14] VITALS: BP 138/93; PULSE 92; TEMP 97.5
[2021-04-30] MEDS ORDERED: methaDONE HCL 10 MG TABLET (FOR DETOX USE ONLY) ONE (09:33)
[2021-04-30] MEDS: PRENATAL VITAMINS W/ FOLIC ACID TABLET (FP) PO SCH (10:04)
[2021-04-30] MEDS: BICTEGRAV/EMTRICIT/TENOFOV (BIKTARVY) 50-200-25 MG TABLET PO SCH (10:05)
[2021-04-30] MEDS: SULFAMETHOXAZOLE/TRIMETHOPRIM 800MG/160MG D.S. TABLET PO SCH (10:06)
[2021-04-30] MEDS: TOLNAFTATE 1% CREAM 15 GM TUBE TP SCH (10:06)
[2021-05-01] MEDS ORDERED: methaDONE HCL 10 MG TABLET (FOR DETOX USE ONLY) PO ONE (10:00)
== END 2021-04-30 11:10 | disposition left against medical advice (07) | DRG 770 ==
LOC: YASAS 09:42 → Y6N 12:19
PROVIDERS: ADMIT Allergy & Immunology; ATTEND Allergy & Immunology
PROC: HZ2ZZZZ Detoxification Services for Substance Abuse Treatment (ICD-10-PCS; principal; 2021-04-27)
DX: F11.23 Opioid dependence with withdrawal (principal); F14.20 Cocaine dependence, uncomplicated; F17.210 Nicotine dependence, cigarettes, uncomplicated; Z21 Asymptomatic human immunodeficiency virus [HIV] infection status; D72.819 Decreased white blood cell count, unspecified; B35.1 Tinea unguium; B36.9 Superficial mycosis, unspecified; E66.9 Obesity, unspecified; Z68.32 Body mass index [BMI] 32.0-32.9, adult; Z59.02 Unsheltered homelessness
CPT/HCPCS: 36415; 80053; 85027; 86780; C9803; J0735; Q0162; U0003; U0005

== ENCOUNTER 2021-08-02 12:41 | Inpatient (IN) | payer OTHER ==
[2021-08-02] MEDS ORDERED: MENTHOL/PHENOL 1 EACH UD MM PRN (13:02)
[2021-08-02] MEDS ORDERED: NICOTINE 10 MG CARTRIDGE (INHALER) IH PRN (13:02)
[2021-08-02] MEDS ORDERED: MAG HYDROX/AL HYDROX/SIMETH 30 ML UNIT-DOSE CUP PO PRN (13:02)
[2021-08-02] MEDS ORDERED: methaDONE HCL 10 MG TABLET (FOR DETOX USE ONLY) PO ONE (13:02)
[2021-08-02] MEDS ORDERED: ACETAMINOPHEN 325 MG TABLET (FP) PO PRN ×2 (13:02)
[2021-08-02] MEDS ORDERED: ONDANSETRON *ODT* 4 MG TABLET SL PRN (13:02)
[2021-08-02] MEDS ORDERED: MAGNESIUM CITRATE 300 ML BOTTLE PO PRN (13:02)
[2021-08-02] MEDS ORDERED: IBUPROFEN 400 MG TABLET (FP) PO PRN (13:02)
[2021-08-02] MEDS ORDERED: MAGNESIUM HYDROX 2400MG/30ML ORAL SUSPENSION 30 ML CUP PO PRN (13:02)
[2021-08-02] MEDS ORDERED: BISMUTH SUBSALICYLATE 262 MG/15 ML BTL PO PRN (13:02)
[2021-08-02 15:36] VITALS: BMI 33.7
[2021-08-02] MEDS: cloNIDine HCL 0.1 MG TABLET PO PRN ×2 (17:38→22:42)
[2021-08-02] MEDS: hydrOXYzine PAMOATE 25 MG CAPSULE (FP) PO SCH ×3 (17:38→22:44)
[2021-08-02] MEDS: PRENATAL VITAMINS W/ FOLIC ACID TABLET (FP) PO SCH (17:38)
[2021-08-02 18:00] LABS: CALCIUM 8.2 mg/dL (8.5-10.1)
[2021-08-02 18:01] LABS: ALBUMIN 3.4 g/dl (3.4-5.0); BLOOD UREA NITROGEN 9.2 mg/dL (7-18)
[2021-08-02 18:04] LABS: CREATININE 1.2 mg/dL (0.55-1.3)
[2021-08-02 18:05] LABS: BILIRUBIN,TOTAL 0.4 mg/dL (0.2-1)
[2021-08-02 18:10] LABS: HEMATOCRIT 36.2 % (35.4-49); HEMOGLOBIN 11.9 GM/dL (11.7-16.9); MCH 29.4 pg (25.7-33.7); MEAN CELL VOLUME 89.2 fl (80-96); MEAN PLT VOLUME 9.3 fl (7.5-11.1); PLATELET COUNT 126 10^3/uL (134-434); RBC 4.05 M/mm3 (4.00-5.60); RDW 14.7 % (11.9-15.9); WHITE BLOOD COUNT 3.2 K/mm3 (4.0-10.0)
[2021-08-02] MEDS: NICOTINE 7 MG/24 HOURS TOPICAL PATCH TD SCH (19:56)
[2021-08-02] MEDS: MELATONIN 5 MG TABLETS PO SCH (22:38)
[2021-08-02] MEDS: METHOCARBAMOL 500 MG TABLET PO PRN (22:41)
[2021-08-02] MEDS: THIAMINE HCL 100 MG TABLET (FP) PO SCH (23:13)
[2021-08-03] MEDS: hydrOXYzine PAMOATE 25 MG CAPSULE (FP) PO SCH ×5 (06:09→22:21)
[2021-08-03] MEDS ORDERED: methaDONE HCL 10 MG TABLET (FOR DETOX USE ONLY) ONE (09:43)
[2021-08-03] MEDS: NICOTINE 7 MG/24 HOURS TOPICAL PATCH TD SCH (09:56)
[2021-08-03] MEDS: METHOCARBAMOL 500 MG TABLET PO PRN ×2 (09:56→17:17)
[2021-08-03] MEDS: PRENATAL VITAMINS W/ FOLIC ACID TABLET (FP) PO SCH (09:56)
[2021-08-03] MEDS: cloNIDine HCL 0.1 MG TABLET PO PRN (22:20)
[2021-08-03] MEDS: MELATONIN 5 MG TABLETS PO SCH (22:21)
[2021-08-03] MEDS: THIAMINE HCL 100 MG TABLET (FP) PO SCH (22:21)
[2021-08-04] MEDS: cloNIDine HCL 0.1 MG TABLET PO PRN ×2 (06:05→22:32)
[2021-08-04] MEDS: hydrOXYzine PAMOATE 25 MG CAPSULE (FP) PO SCH ×5 (06:11→22:30)
[2021-08-04] MEDS ORDERED: methaDONE HCL 10 MG TABLET (FOR DETOX USE ONLY) PO ONE (10:00)
[2021-08-04] MEDS: PRENATAL VITAMINS W/ FOLIC ACID TABLET (FP) PO SCH (10:42)
[2021-08-04] MEDS: NICOTINE 7 MG/24 HOURS TOPICAL PATCH TD SCH (10:42)
[2021-08-04] MEDS: THIAMINE HCL 100 MG TABLET (FP) PO SCH (22:29)
[2021-08-04] MEDS: MELATONIN 5 MG TABLETS PO SCH (22:29)
[2021-08-04] MEDS: METHOCARBAMOL 500 MG TABLET PO PRN (22:32)
[2021-08-04] MEDS: diazePAM 5 MG TABLET PO PRN (22:32)
[2021-08-05] MEDS: hydrOXYzine PAMOATE 25 MG CAPSULE (FP) PO SCH ×5 (06:12→22:19)
[2021-08-05] MEDS ORDERED: methaDONE HCL 10 MG TABLET (FOR DETOX USE ONLY) ONE (09:14)
[2021-08-05] MEDS: PRENATAL VITAMINS W/ FOLIC ACID TABLET (FP) PO SCH (10:25)
[2021-08-05] MEDS: NICOTINE 7 MG/24 HOURS TOPICAL PATCH TD SCH (10:28)
[2021-08-05] MEDS: FLUCONAZOLE 100 MG TABLET (UD) PO SCH ×2 (12:48→22:19)
[2021-08-05] MEDS: MELATONIN 5 MG TABLETS PO SCH (22:19)
[2021-08-05] MEDS: THIAMINE HCL 100 MG TABLET (FP) PO SCH (22:19)
[2021-08-06] MEDS: hydrOXYzine PAMOATE 25 MG CAPSULE (FP) PO SCH ×3 (05:32→13:33)
[2021-08-06] MEDS ORDERED: methaDONE HCL 10 MG TABLET (FOR DETOX USE ONLY) PO ONE (10:00)
[2021-08-06] MEDS: diazePAM 5 MG TABLET PO PRN (10:50)
[2021-08-06] MEDS: FLUCONAZOLE 100 MG TABLET (UD) PO SCH (10:50)
[2021-08-06] MEDS: METHOCARBAMOL 500 MG TABLET PO PRN (10:50)
[2021-08-06] MEDS: NICOTINE 7 MG/24 HOURS TOPICAL PATCH TD SCH (10:51)
[2021-08-06] MEDS: PRENATAL VITAMINS W/ FOLIC ACID TABLET (FP) PO SCH (10:51)
[2021-08-06 17:07] VITALS: BP 137/89; PULSE 83; TEMP 97.5
== END 2021-08-06 18:49 | disposition home or self-care (01) | DRG 773 ==
LOC: YASAS 12:41 → Y3N 14:29
PROVIDERS: ADMIT Allergy & Immunology; ATTEND Allergy & Immunology
PROC: HZ2ZZZZ Detoxification Services for Substance Abuse Treatment (ICD-10-PCS; principal; 2021-08-02)
DX: F11.23 Opioid dependence with withdrawal (principal); F14.20 Cocaine dependence, uncomplicated; F17.210 Nicotine dependence, cigarettes, uncomplicated; E66.9 Obesity, unspecified; Z68.33 Body mass index [BMI] 33.0-33.9, adult; Z86.19 Personal history of other infectious and parasitic diseases; Z59.02 Unsheltered homelessness; Z91.19 Patient's noncompliance with other medical treatment and regimen
CPT/HCPCS: 36415; 80053; 85027; 86780; C9803; J0735; U0003; U0005

== ENCOUNTER 2023-04-21 20:53 | Inpatient (IN) | payer OTHER ==
[2023-04-21 22:31] VITALS: BMI 33.2
[2023-04-22] MEDS ORDERED: BENZONATATE 200 MG CAPSULE PO PRN (04:21)
[2023-04-22] MEDS ORDERED: MAG HYDROX/AL HYDROX/SIMETH 30 ML UNIT-DOSE CUP PO PRN (04:21)
[2023-04-22] MEDS ORDERED: BISMUTH SUBSALICYLATE 524 MG/30 ML PO PRN (04:21)
[2023-04-22] MEDS ORDERED: IBUPROFEN 400 MG TABLET (FP) PO PRN (04:21)
[2023-04-22] MEDS ORDERED: NALOXONE HCL 0.4 MG/ML VIAL IM PRN (04:21)
[2023-04-22] MEDS ORDERED: NALOXONE HCL (KLOXXADO) 8 MG SPRAY NS PRN (04:21)
[2023-04-22] MEDS ORDERED: DICYCLOMINE HCL 10 MG CAPSULE PO PRN (04:21)
[2023-04-22] MEDS ORDERED: LOPERAMIDE HCL 2 MG CAPSULE PO PRN (04:21)
[2023-04-22] MEDS ORDERED: BENZOCAINE/MENTHOL (CHLORASEPTIC ) LOZENGE MM PRN (04:21)
[2023-04-22] MEDS ORDERED: ACETAMINOPHEN 325 MG TABLET (FP) PO PRN (04:21)
[2023-04-22] MEDS ORDERED: guaiFENesin 600 MG TABLET.ER (FP) PO PRN (04:21)
[2023-04-22] MEDS ORDERED: POLYETHYLENE GLYCOL (HEALTHYLAX) 3350 17 GM PACKET PO PRN (04:21)
[2023-04-22] MEDS ORDERED: MAGNESIUM HYDROX 2400MG/30ML ORAL SUSPENSION 30 ML CUP PO PRN (04:21)
[2023-04-22] MEDS ORDERED: ONDANSETRON *ODT* 4 MG TABLET SL PRN (04:21)
[2023-04-22] MEDS ORDERED: methaDONE HCL 10 MG TABLET (FOR DETOX USE ONLY) PO ONE (04:25)
[2023-04-22] MEDS: cloNIDine HCL 0.1 MG TABLET PO PRN ×3 (05:22→22:19)
[2023-04-22] MEDS: PRENATAL VITAMINS W/ FOLIC ACID TABLET (FP) PO SCH (10:31)
[2023-04-22] MEDS: hydrOXYzine PAMOATE 25 MG CAPSULE (FP) PO PRN (22:22)
[2023-04-22] MEDS: THIAMINE HCL 100 MG TABLET (FP) PO SCH (22:22)
[2023-04-22] MEDS: METHOCARBAMOL 500 MG TABLET PO PRN (22:22)
[2023-04-22] MEDS: MELATONIN 5 MG TABLETS PO SCH (22:22)
[2023-04-23] MEDS: METHOCARBAMOL 500 MG TABLET PO PRN ×2 (09:49→22:33)
[2023-04-23] MEDS: PRENATAL VITAMINS W/ FOLIC ACID TABLET (FP) PO SCH (09:49)
[2023-04-23 10:18] LABS: POTASSIUM 3.4 mmol/L (3.5-5.1)
[2023-04-23 10:22] LABS: HEMATOCRIT 37.8 % (35.4-49); HEMOGLOBIN 12.7 GM/dL (11.7-16.9); MCH 29.4 pg (25.7-33.7); MCHC 33.7 g/dl (32.0-35.9); MEAN CELL VOLUME 87.4 fl (80-96); MEAN PLT VOLUME 8.6 fl (7.5-11.1); PLATELET COUNT 140 10^3/uL (134-434); RBC 4.33 M/mm3 (4.00-5.60); RDW 15.5 % (11.9-15.9); WHITE BLOOD COUNT 4.9 K/mm3 (4.0-10.0)
[2023-04-23 10:23] LABS: ALBUMIN 3.1 g/dl (3.4-5.0); CALCIUM 8.7 mg/dL (8.5-10.1)
[2023-04-23 10:24] LABS: BLOOD UREA NITROGEN 7.9 mg/dL (7-18)
[2023-04-23 10:27] LABS: BILIRUBIN,TOTAL 0.6 mg/dL (0.2-1)
[2023-04-23 10:28] LABS: TOT PROT 7.7 g/dl (6.4-8.2)
[2023-04-23] MEDS: SULFAMETHOXAZOLE/TRIMETHOPRIM 800MG/160MG D.S. TABLET PO SCH (11:39)
[2023-04-23] MEDS: BICTEGRAV/EMTRICIT/TENOFOV (BIKTARVY) 50-200-25 MG TABLET PO SCH (11:39)
[2023-04-23] MEDS ORDERED: POTASSIUM CHLORIDE ORAL LIQUID 20 MEQ/15 ML PO ONE (14:10)
[2023-04-23] MEDS: POTASSIUM CHLORIDE ORAL LIQUID 20 MEQ/15 ML PO SCH (22:29)
[2023-04-23] MEDS: cloNIDine HCL 0.1 MG TABLET PO PRN (22:29)
[2023-04-23] MEDS: THIAMINE HCL 100 MG TABLET (FP) PO SCH (22:33)
[2023-04-23] MEDS: hydrOXYzine PAMOATE 25 MG CAPSULE (FP) PO PRN (22:33)
[2023-04-23] MEDS: MELATONIN 5 MG TABLETS PO SCH (22:34)
[2023-04-24] MEDS: IBUPROFEN 600 MG TABLET (FP) PO PRN (05:56)
[2023-04-24] MEDS: BICTEGRAV/EMTRICIT/TENOFOV (BIKTARVY) 50-200-25 MG TABLET PO SCH (07:40)
[2023-04-24] MEDS: POTASSIUM CHLORIDE ORAL LIQUID 20 MEQ/15 ML PO SCH ×2 (09:45→22:24)
[2023-04-24] MEDS: SULFAMETHOXAZOLE/TRIMETHOPRIM 800MG/160MG D.S. TABLET PO SCH (09:45)
[2023-04-24] MEDS: PRENATAL VITAMINS W/ FOLIC ACID TABLET (FP) PO SCH (09:45)
[2023-04-24] MEDS: diazePAM 5 MG TABLET PO PRN (09:46)
[2023-04-24] MEDS ORDERED: methaDONE HCL 10 MG TABLET (FOR DETOX USE ONLY) PO ONE (10:00)
[2023-04-24] MEDS: MELATONIN 5 MG TABLETS PO SCH (22:24)
[2023-04-24] MEDS: THIAMINE HCL 100 MG TABLET (FP) PO SCH (22:24)
[2023-04-24] MEDS: cloNIDine HCL 0.1 MG TABLET PO PRN (22:24)
[2023-04-25] MEDS: BICTEGRAV/EMTRICIT/TENOFOV (BIKTARVY) 50-200-25 MG TABLET PO SCH (07:06)
[2023-04-25] MEDS: PRENATAL VITAMINS W/ FOLIC ACID TABLET (FP) PO SCH (09:51)
[2023-04-25] MEDS: SULFAMETHOXAZOLE/TRIMETHOPRIM 800MG/160MG D.S. TABLET PO SCH (09:52)
[2023-04-25] MEDS: POTASSIUM CHLORIDE ORAL LIQUID 20 MEQ/15 ML PO SCH (09:52)
[2023-04-25 16:39] VITALS: RESP 18
[2023-04-25] MEDS: diazePAM 5 MG TABLET PO PRN (21:51)
[2023-04-25] MEDS: METHOCARBAMOL 500 MG TABLET PO PRN (21:52)
[2023-04-25] MEDS: MELATONIN 5 MG TABLETS PO SCH (21:52)
[2023-04-25] MEDS: THIAMINE HCL 100 MG TABLET (FP) PO SCH (21:52)
[2023-04-26] MEDS: BICTEGRAV/EMTRICIT/TENOFOV (BIKTARVY) 50-200-25 MG TABLET PO SCH (07:26)
[2023-04-26] MEDS: IBUPROFEN 600 MG TABLET (FP) PO PRN (09:22)
[2023-04-26] MEDS: METHOCARBAMOL 500 MG TABLET PO PRN (09:22)
[2023-04-26] MEDS: PRENATAL VITAMINS W/ FOLIC ACID TABLET (FP) PO SCH (09:26)
[2023-04-26] MEDS: SULFAMETHOXAZOLE/TRIMETHOPRIM 800MG/160MG D.S. TABLET PO SCH (09:26)
[2023-04-26 09:38] VITALS: BP 146/88; PULSE 71; TEMP 97.3
[2023-04-26] MEDS ORDERED: methaDONE HCL 10 MG TABLET (FOR DETOX USE ONLY) PO ONE (10:00)
== END 2023-04-26 10:19 | disposition home or self-care (01) | DRG 773 ==
LOC: YASAS 20:53 → Y3N 04-22 04:24
PROVIDERS: ADMIT Allergy & Immunology; ATTEND Allergy & Immunology
PROC: HZ2ZZZZ Detoxification Services for Substance Abuse Treatment (ICD-10-PCS; principal; 2023-04-22)
DX: F11.23 Opioid dependence with withdrawal (principal); F14.20 Cocaine dependence, uncomplicated; F17.210 Nicotine dependence, cigarettes, uncomplicated; Z21 Asymptomatic human immunodeficiency virus [HIV] infection status; B35.1 Tinea unguium; E66.9 Obesity, unspecified; Z68.33 Body mass index [BMI] 33.0-33.9, adult
CPT/HCPCS: 36415; 80053; 84132; 85027; 86780; 87635; 87811; Q0162